=== PATIENT | male | born 1995 | race Two or more races ===

== ENCOUNTER 2017-06-15 19:04 | Emergency (ER) | payer MEDICAID ==
[~2017-06-15] VITALS: Ht 185.4 cm; Wt 120.0 kg
[2017-06-15] MEDS ORDERED: ALBU8.5H8 INH (19:28)
[2017-06-15 21:01] VITALS: BP 120/61
== END 2017-06-15 21:05 | disposition home or self-care (01) ==
LOC: ED 21:00
DX: J45.41 Moderate persistent asthma with (acute) exacerbation (principal)
CPT/HCPCS: 71020; 93005; 99284; J7512

== ENCOUNTER 2018-11-22 00:51 | Emergency (ER) | payer MEDICAID ==
[~2018-11-22] VITALS: Ht 188 cm; Wt 129.0 kg
[~2018-11-22 00:51] MED LIST: ALBU8.5H8 INH
[2018-11-22 01:37] LABS: BASOPHILS # (AUTO) 0.06 x10^3/uL (0-0.1); BASOPHILS % (AUTO) 1 % (0-1); EOSINOPHILS # (AUTO) 0.45 x10^3/uL (0-0.4); EOSINOPHILS % (AUTO) 5 % (1-7); LYMPHOCYTES # (AUTO) 2.18 x10^3/uL (1-3.4); LYMPHOCYTES % (AUTO) 25 % (22-44); MD NO; MEAN CORPUSCULAR HEMOGLOBIN 28.9 pg (27.5-34.5); MEAN CORPUSCULAR HGB CONC 33.1 g/dL (33.2-36.2); MEAN CORPUSCULAR VOLUME 87.2 fL (81-97); MEAN PLATELET VOLUME 7.9 fL (7.4-10.4); MONOCYTES # (AUTO) 0.79 x10^3/uL (0.2-0.8); MONOCYTES % (AUTO) 9 % (2-9); NEUTROPHILS # (AUTO) 5.34 x10^3/uL (1.8-6.8); NEUTROPHILS % (AUTO) 61 % (42-75); PLATELET COUNT 251 x10^3/uL (130-400); RED BLOOD COUNT 5.54 x10^6/uL (4.38-5.82); RED CELL DISTRIBUTION WIDTH 13.8 % (9.4-14.8)
--- NOTE | 2018-11-22 01:42 | NUR ---
PT. RESTING ON GURNEY WITH NADN. CONTINUOUS PULSE OX, B/P, AND HEART MONITORS ALL IN PLACE. NSR ON MONITOR. THIS RN ASSUMED CARE OF PT. AFTER REPORT FROM COLETTE ESPINAL RN AT APPROXIMATELY 0100. EKG WAS DONE AND PRESENTED TO ERP ON ARRIVAL. CALL LIGHT IN REACH AND ALL SAFETY MEASURES OBERVED.
[2018-11-22 01:43] LABS: ALBUMIN 3.7 g/dL (3.4-5.0); ANION GAP 8 mmol/L (5-15); CALCIUM 8.7 mg/dL (8.5-10.1); CHLORIDE 108 mmol/L (98-107); CREATININE 1.58 mg/dL (0.7-1.3)
[2018-11-22 01:47] LABS: TROPONIN I < 0.015 ng/mL (0.000-0.045)
--- NOTE | 2018-11-22 01:56 | NUR ---
CHART UP FOR RECHECK BY YONI.
[2018-11-22 02:39] VITALS: BP 134/75
== END 2018-11-22 02:40 | disposition home or self-care (01) ==
LOC: ED 01:12
DX: R07.89 Other chest pain (principal); L03.311 Cellulitis of abdominal wall; J45.909 Unspecified asthma, uncomplicated
CPT/HCPCS: 36415; 71045; 80048; 82040; 84484; 85025; 93005; 99284

== ENCOUNTER 2019-01-24 11:22 | Emergency (ER) | payer MEDICAID ==
[~2019-01-24] VITALS: Ht 185.4 cm; Wt 135.4 kg
[2019-01-24 11:38] VITALS: BP 123/78
== END 2019-01-24 14:02 | disposition home or self-care (01) ==
LOC: ED 13:36
DX: S83.411A Sprain of medial collateral ligament of right knee, initial encounter (principal); J45.909 Unspecified asthma, uncomplicated; X58.XXXA Exposure to other specified factors, initial encounter; Y93.89 Activity, other specified; Y92.89 Other specified places as the place of occurrence of the external cause; Y99.8 Other external cause status
CPT/HCPCS: 73564; 96372; 99283; J1885

== ENCOUNTER 2019-02-11 15:43 | Emergency (ER) | payer MEDICAID ==
[~2019-02-11] VITALS: Ht 185.4 cm; Wt 136.0 kg
[2019-02-11 15:47] VITALS: BP 136/79
== END 2019-02-11 16:16 | disposition home or self-care (01) ==
LOC: ED 16:06
DX: K04.7 Periapical abscess without sinus (principal); J45.909 Unspecified asthma, uncomplicated
CPT/HCPCS: 99283

== ENCOUNTER 2019-02-20 16:01 | Emergency (ER) | payer MEDICAID ==
[~2019-02-20] VITALS: Ht 185.4 cm; Wt 137.1 kg
[2019-02-20 16:03] VITALS: BP 159/80
== END 2019-02-20 17:12 | disposition home or self-care (01) ==
LOC: ED 17:06
DX: J45.31 Mild persistent asthma with (acute) exacerbation (principal)
CPT/HCPCS: 71046; 99283; J7512